=== PATIENT | female | born 1990 | race African-American/Black ===

== ENCOUNTER 2018-09-29 10:56 | Emergency (ER) | payer MEDICAID, MEDICARE ==
[~2018-09-29] VITALS: Ht 170.2 cm; Wt 127.0 kg
[2018-09-29] MEDS ORDERED: IBUPROFEN 600MG TABLET PO ONE (13:00)
[2018-09-29 13:55] VITALS: BP 137/83
== END 2018-09-29 14:05 | disposition home or self-care (01) ==
LOC: ER 10:56
DX: M25.571 Pain in right ankle and joints of right foot (principal)
CPT/HCPCS: 73610; 81025; 99283